=== PATIENT | male | born 1995 | race African-American/Black ===

== ENCOUNTER 2023-07-25 07:46 | Emergency (ER) | payer SELFPAY ==
[~2023-07-25] VITALS: Ht 182.9 cm; Wt 80.0 kg
[2023-07-25 07:56] VITALS: BP 133/86; PULSE 98; RESP 14; TEMP 98.3; O2SAT 100
== END 2023-07-25 10:29 | disposition home or self-care (01) ==
LOC: ER 08:33
DX: R46.2 Strange and inexplicable behavior (principal)
CPT/HCPCS: 99283

== ENCOUNTER 2023-10-21 19:03 | Emergency (ER) | payer SELFPAY ==
[~2023-10-21] VITALS: Ht 170.2 cm; Wt 77.0 kg
[2023-10-21 19:04] VITALS: BP 148/80; PULSE 100; RESP 18; TEMP 98; O2SAT 97
[2023-10-21] MEDS: MAGNESIUM/ALUMINUM HYDROXIDE/SIMETHICONE 30ML UDC PO ONE (19:30)
[2023-10-21] MEDS: ONDANSETRON 4MG ODT PO ONE (19:30)
== END 2023-10-21 19:22 | disposition left against medical advice (07) ==
LOC: ER 19:03
DX: R10.13 Epigastric pain (principal); F20.9 Schizophrenia, unspecified; R11.0 Nausea
CPT/HCPCS: 99283; Q0162

== ENCOUNTER 2023-10-22 10:12 | Emergency (ER) | payer MEDICAID ==
[~2023-10-22] VITALS: Ht 172.7 cm; Wt 73.0 kg
[2023-10-22] MEDS: ALPRAZOLAM 0.5 MG TABLET PO ONE (12:47)
[2023-10-22 13:22] LABS: BASOPHILS % 0.8 % (0.0-2.0); HEMATOCRIT. 38.7 % (42.0-52.0); HEMOGLOBIN. 13.7 g/dL (14.0-18.0); LYMPHOCYTES % 13.3 % (20.0-50.0); MEAN CORPUSCULAR HEMOGLOBIN 29.1 pg (28.0-32.0); MEAN CORPUSCULAR HGB CONC 35.3 g/dL (31.0-37.0); MEAN CORPUSCULAR VOLUME 82.4 fL (80.0-94.0); MEAN PLATELET VOLUME 9.4 fl (7.4-10.4); MONOCYTES % 13.6 % (2.0-8.0); NEUTROPHILS % 72.3 % (40.0-76.0); PLATELET 130 x1000/uL (130-400); RED BLOOD CELL COUNT 4.69 mill/uL (4.7-6.1); RED CELL DISTRIBUTION WIDTH 15.8 % (11.6-14.6); WHITE BLOOD COUNT 11.8 x1000/uL (4.5-11.0)
[2023-10-22 13:24] LABS: CHLORIDE 104 mEq/L (98-107); POTASSIUM 4.5 mEq/L (3.5-5.1); SODIUM 140 mEq/L (136-145)
[2023-10-22 13:25] LABS: CALCIUM 9.3 mg/dL (8.7-10.4); CARBON DIOXIDE 29 mEq/L (21-32)
[2023-10-22 13:30] LABS: CREATININE 0.9 mg/dL (0.6-1.3); GLUCOSE 83 mg/dL (70-105); UREA NITROGEN BLOOD 11 mg/dL (9-23)
[2023-10-22 13:32] LABS: ACETAMINOPHEN < 2 ug/mL (10-30)
[2023-10-22 13:39] LABS: ETHANOL BLOOD < 10 mg/dL (<10)
[2023-10-22 14:57] LABS: *AMPHETAMINES SCREEN URINE NEGATIVE (NEGATIVE); *BARBITURATES SCREEN URINE NEGATIVE (NEGATIVE); *BENZODIAZEPINES SCREEN URINE NEGATIVE (NEGATIVE); *COCAINE SCREEN URINE NEGATIVE (NEGATIVE); CANNABINOID URINE SCREEN NEGATIVE (NEGATIVE); ECSTASY MDMA SCREEN URINE NEGATIVE (NEGATIVE); METHADONE URINE SCREEN NEGATIVE (NEGATIVE); OPIATES URINE SCREEN NEGATIVE (NEGATIVE); PHENCYCLIDINE URINE SCREEN NEGATIVE (NEGATIVE)
[2023-10-23] MEDS: HALOPERIDOL LACTATE 5MG/ML VIAL IM ONE (02:30)
[2023-10-23] MEDS: DIPHENHYDRAMINE 50MG/ML VIAL IM PRN (03:05)
[2023-10-23] MEDS: MIDAZOLAM HCL 2 MG/2 ML VIAL IM ONE (03:06)
[2023-10-23] MEDS: LORAZEPAM 1MG TABLET PO ONE (09:30)
[2023-10-23] MEDS: OLANZAPINE 5MG TABLET ODT PO SCH (17:21)
[2023-10-24] MEDS: LORAZEPAM 2MG/ML INJ IM ONE (14:08)
[2023-10-24] MEDS: HALOPERIDOL LACTATE 5MG/ML VIAL IM ONE (14:08)
[2023-10-24 15:53] VITALS: O2SAT 99
[2023-10-25 14:26] VITALS: BP 128/71; PULSE 72; RESP 17; TEMP 98.4
== END 2023-10-25 14:30 ==
LOC: ER 10:12
DX: R45.1 Restlessness and agitation (principal); R44.1 Visual hallucinations; Z20.822 Contact with and (suspected) exposure to COVID-19
CPT/HCPCS: 80305; 80048; 80307; 80329; 80320; 85025; 36415; 99285; 87426; J1200; J2250; J1630 ×2; J2060; G0480

== ENCOUNTER 2024-01-02 02:29 | Emergency (ER) | payer MEDICAID ==
[~2024-01-02] VITALS: Ht 170.2 cm; Wt 70.0 kg
[2024-01-02 02:40] VITALS: O2SAT 97
[2024-01-02 03:27] LABS: EOSINOPHILS % 0.1 % (0.0-5.0); HEMATOCRIT. 43.8 % (42.0-52.0); HEMOGLOBIN. 14.7 g/dL (14.0-18.0); LYMPHOCYTES % 25.8 % (20.0-50.0); MEAN CORPUSCULAR HEMOGLOBIN 28.3 pg (28.0-32.0); MEAN CORPUSCULAR HGB CONC 33.6 g/dL (31.0-37.0); MEAN CORPUSCULAR VOLUME 84.4 fL (80.0-94.0); MONOCYTES % 9.9 % (2.0-8.0); NEUTROPHILS % 63.2 % (40.0-76.0); PLATELET 165 x1000/uL (130-400); RED BLOOD CELL COUNT 5.19 mill/uL (4.7-6.1); RED CELL DISTRIBUTION WIDTH 15.7 % (11.6-14.6); WHITE BLOOD COUNT 8.9 x1000/uL (4.5-11.0)
[2024-01-02 03:36] LABS: CLARITY URINE CLOUDY (CLEAR); COLOR URINE DARK YELLOW (YELLOW); GLUCOSE URINE NEGATIVE (NEGATIVE); KETONES URINE TRACE (NEGATIVE); LEUKOCYTE ESTERASE URINE TRACE (NEGATIVE); NITRITE URINE NEGATIVE (NEGATIVE); OCCULT BLOOD URINE NEGATIVE (NEGATIVE); PH URINE 5.5 (4.5-8.0); PROTEIN URINE TRACE (NEGATIVE); SPECIFIC GRAVITY URINE 1.044 (1.005-1.030)
[2024-01-02 03:40] LABS: CHLORIDE 107 mEq/L (98-107); SODIUM 141 mEq/L (136-145)
[2024-01-02 03:41] LABS: CARBON DIOXIDE 27 mEq/L (21-32)
[2024-01-02 03:42] LABS: CALCIUM 9.4 mg/dL (8.7-10.4)
[2024-01-02 03:45] LABS: *AMPHETAMINES SCREEN URINE PRESUMPTIVE POSITIVE (NEGATIVE)
[2024-01-02 03:46] LABS: GLUCOSE 95 mg/dL (70-105)
[2024-01-02 03:46] LABS: *BARBITURATES SCREEN URINE NEGATIVE (NEGATIVE); *BENZODIAZEPINES SCREEN URINE NEGATIVE (NEGATIVE); *COCAINE SCREEN URINE NEGATIVE (NEGATIVE); CANNABINOID URINE SCREEN PRESUMPTIVE POSITIVE (NEGATIVE); ECSTASY MDMA SCREEN URINE CONF.TEST INDICATED (NEGATIVE); METHADONE URINE SCREEN NEGATIVE (NEGATIVE); OPIATES URINE SCREEN NEGATIVE (NEGATIVE); PHENCYCLIDINE URINE SCREEN NEGATIVE (NEGATIVE)
[2024-01-02 03:47] LABS: UREA NITROGEN BLOOD 23 mg/dL (9-23)
[2024-01-02 03:48] LABS: BACTERIA URINE 3+; MUCUS URINE 2+ /lpf (NONE/TRACE); RBC URINE 0-2 /hpf (0-2); SQUAMOUS EPITHELIAL CELL URINE 1+ /lpf (RARE/1+)
[2024-01-02 03:48] LABS: ACETAMINOPHEN < 2 ug/mL (10-30)
[2024-01-02 03:49] LABS: ETHANOL BLOOD < 10 mg/dL (<10)
[2024-01-03] MEDS: ARIPIPRAZOLE 5MG TABLET PO NR (01:08)
[2024-01-03] MEDS: SERTRALINE HCL 25MG TABLET PO SCH (09:00)
[2024-01-03 16:00] VITALS: BP 137/82; PULSE 60; RESP 16; TEMP 37.05852; O2SAT 99
== END 2024-01-03 16:19 | disposition short-term general hospital (02) ==
LOC: ER 02:42
DX: R45.851 Suicidal ideations (principal); F41.9 Anxiety disorder, unspecified; F20.9 Schizophrenia, unspecified; F17.200 Nicotine dependence, unspecified, uncomplicated; Z20.822 Contact with and (suspected) exposure to COVID-19
CPT/HCPCS: 36415; 80048; 80305; 80307; 80320; 80329; 81003; 85025; 87426; 99285; G0480